=== PATIENT | female | born 1980 | race African-American/Black ===

== ENCOUNTER 2018-08-24 13:45 | Emergency (ER) | payer OTHER ==
[~2018-08-24] VITALS: Ht 157.5 cm; Wt 97.5 kg
[2018-08-24 13:45] VITALS: BP 133/92
[~2018-08-24 13:45] MED LIST: AMITRIPTYLINE H50 M3; IBUPROFEN 600600 M1 PO; VITAMIN D400 UNI1
[2018-08-24 14:01] LABS: URINE BILIRUBIN NEGATIVE (Negative); URINE BLOOD NEGATIVE (Negative); URINE CLARITY CLEAR; URINE COLOR YELLOW; URINE GLUCOSE-RANDOM* NEGATIVE (Negative); URINE KETONES NEGATIVE (Negative); URINE LEUKOCYTES-REFLEX NEGATIVE (Negative); URINE NITRITE-REFLEX NEGATIVE (Negative); URINE PROTEIN (DIPSTICK) TRACE (Negative); URINE SPECIFIC GRAVITY >= 1.030 (1.005-1.035); URINE UROBILINOGEN 0.2 E.U./dl (0.2-1.0)
[2018-08-24] MEDS ORDERED: CYCLOBENZAPRINE5 MG PO (14:16)
[2018-08-24] MEDS ORDERED: NORCO 5-325 TA1 EACH PO (14:16)
[2018-08-24] MEDS ORDERED: MEDROLDOSEPACK PO (14:16)
== END 2018-08-24 14:30 | disposition home or self-care (01) ==
LOC: ER 13:45
PROVIDERS: Physician Assistant
DX: M54.42 Lumbago with sciatica, left side (principal); J45.909 Unspecified asthma, uncomplicated; F17.210 Nicotine dependence, cigarettes, uncomplicated

== ENCOUNTER 2020-08-20 22:22 | Emergency (ER) | payer BC, OTHER ==
[~2020-08-20] VITALS: Ht 157.5 cm; Wt 102.1 kg
[~2020-08-20 22:22] MED LIST changes: +CYCLOBENZAPRINE5 MG PO; +MEDROLDOSEPACK PO; +NORCO 5-325 TA1 EACH PO
[2020-08-20] MEDS ORDERED: NORVASC10 MG PO (22:29)
[2020-08-20] MEDS ORDERED: IBUPROFEN200 MG PO (22:29)
[2020-08-20 23:17] LABS: ABSOLUTE NEUTROPHILS 8.7 thou/uL (1.4-8.2); BASOPHILS 0.5 % (0.0-2.0); EOSINOPHILS 0.9 % (0.0-3.0); HEMATOCRIT 37.4 % (37.0-47.0); HEMOGLOBIN 12.5 gm/dL (12.0-15.0); MCH 29.5 pg (26.0-34.0); MCHC 33.5 g/dL (28.0-37.0); MCV 88.1 fL (80.0-100.0); MONOCYTES 4.9 % (1.0-8.0); PLATELET COUNT 308 thou/uL (150-400); POLYS 76.7 % (36.0-66.0); RBC 4.25 mil/uL (4.20-5.00); RDW 13.1 % (10.5-14.5); WBC 11.3 thou/uL (4.0-11.0)
[2020-08-20 23:20] LABS: CALCIUM 8.9 mg/dL (8.5-10.1); CREATININE 0.9 mg/dL (0.6-1.0); POTASSIUM 3.9 mmol/L (3.5-5.1)
[2020-08-21] MEDS ORDERED: NORCO5 PO (03:00)
[2020-08-21 03:10] VITALS: BP 129/83
== END 2020-08-21 03:10 | disposition home or self-care (01) ==
LOC: ER 22:22
PROVIDERS: Emergency Medicine
DX: S39.011A Strain of muscle, fascia and tendon of abdomen, initial encounter (principal); M25.552 Pain in left hip; I10 Essential (primary) hypertension; F17.210 Nicotine dependence, cigarettes, uncomplicated; J45.909 Unspecified asthma, uncomplicated; X58.XXXA Exposure to other specified factors, initial encounter; Y93.89 Activity, other specified; Y92.89 Other specified places as the place of occurrence of the external cause; Y99.8 Other external cause status